=== PATIENT | female | born 1945 | race African-American/Black ===

== ENCOUNTER 2017-03-01 00:53 | Inpatient (IN) | payer OTHER ==
[~2017-03-01] VITALS: Ht 154.9 cm; Wt 56.7 kg
[~2017-03-01 00:53] MED LIST: COREG6.25 M1 PO; DESYREL100 MG PO; FOSAMAX70 MG PO; HYDROCODON-ACE1 EAC7 PO; LISINOPRIL5 MG PO; MAGNESIUM400 M1 PO; PRAVASTATIN SOD40 MG PO; PREDNISONE10 MG PO; PROVENTIL,2.5 MG/3 M IH; SOMA350 MG PO
[2017-03-01 01:43] LABS: EOSINOPHIL (%) 1.9 % (0-5); EOSINOPHIL COUNT 0.2 K/uL (0-0.3); HEMATOCRIT 31.5 % (36.0-46.0); IMMATURE GRANULOCYTE (%) 0.4 % (0.0-0.7); INSTRUMENT ABS NEUTROPHIL CT 6.3 K/uL; LYMPHOCYTE COUNT 1.1 K/uL (1.0-2.8); MCH 27.3 PG (29.0-34.0); MCHC 30.2 G/DL (30.0-36.0); MCV 90.5 FL (83-99); MEAN PLAT.VOLUME 9.8 uM^3 (9.5-12.4); MONOCYTE (%) 10.5 % (3-12); MONOCYTE COUNT 0.9 K/uL (0-0.8); NEUTROPHIL (%) 73.8 % (45-76); NEUTROPHIL COUNT 6.3 K/uL (1.8-6.4); PLATELET COUNT 470 K/uL (156-360); RBC DIS.WIDTH-CV 16.7 % (11.8-14.6); RED BLOOD COUNT 3.48 M/uL (3.80-5.20); WHITE BLOOD COUNT 8.6 K/uL (4.1-10.2)
[2017-03-01 01:49] LABS: INTER. NORMALIZED RATIO 1.1; PROTHROMBIN TIME 12.6 SEC (10.2-12.9)
[2017-03-01 01:51] LABS: CHLORIDE 98 mEq/L (99-109); POTASSIUM 4.1 mEq/L (3.7-5.4); PTT 34.8 SEC (25-37); SODIUM 140 mEq/L (136-147)
[2017-03-01 01:53] LABS: GLUCOSE 106 mg/dL (70-99)
[2017-03-01 01:54] LABS: ANION GAP 7 MEQ/L (2-14)
[2017-03-01 01:57] LABS: GFR ESTIMATE (CALCULATED) > 59 mL/min/; UREA NITROGEN (BUN) 5 mg/dL (9-23)
[2017-03-01 02:03] LABS: TROP-I INTERPRETATION NEGATIVE; TROPONIN-I 0.05 ng/mL (0.0-0.30)
[2017-03-01 04:24] LABS: BASE EXCESS 11.5 mEq/L (-3 to +3); BICARBONATE 38.5 mEq/L (22-26); CARBOXY HGB 2.6 % (0-5); COMMENTS - BLOOD GASES A+C+; DEVICE NC; METHEMOGLOBIN 0.9 % (0-1.5); O2 FLOW 6 L/MIN; PCO2 65 mm Hg (35-45); PO2 49 mm Hg (80-100); SITE LR; pH 7.38 (7.35-7.45)
[2017-03-01 04:25] LABS: TOTAL RESP RATE 27 resp/min
[2017-03-01 07:15] VITALS: BP 135/63
[2017-03-01 08:17] LABS: POINT-OF-CARE METER ID UU13113698
[2017-03-01 11:27] VITALS: BP 135/63
[2017-03-01 11:37] LABS: POINT-OF-CARE METER ID UU14314088
[2017-03-01 12:27] LABS: BICARBONATE 38.4 mEq/L (22-26); CARBOXY HGB 2.5 % (0-5); METHEMOGLOBIN 1.8 % (0-1.5); PCO2 68 mm Hg (35-45); pH 7.36 (7.35-7.45)
[2017-03-01 12:28] LABS: COMMENTS - BLOOD GASES A+C+; DEVICE HHFNC; FI02 60 %; O2 FLOW 30 L/MIN; PO2 69 mm Hg (80-100); SITE LR; TOTAL RESP RATE 22 resp/min
[2017-03-01] MEDS ORDERED: HYDROCODON-ACE1 EAC8 PO (13:32)
[2017-03-01] MEDS ORDERED: RANITIDINE HCL150 MG PO (13:35)
[2017-03-01] MEDS ORDERED: SERTRALINE HCL50 MG PO (13:36)
[2017-03-01] MEDS ORDERED: NIFEDIPINE ER30 MG PO (13:36)
[2017-03-01] MEDS ORDERED: DORZOLAMIDE HCL10 ML BOTH EYES (13:37)
[2017-03-01] MEDS ORDERED: ECHINACEA400 MG PO (13:37)
[2017-03-01] MEDS ORDERED: GLUCOSAMINE CH1 EAC6 PO (13:37)
[2017-03-01] MEDS ORDERED: TYLENOL REGULA325 MG PO (13:38)
[2017-03-01 15:18] VITALS: BP 105/54
[2017-03-01 16:59] LABS: POINT-OF-CARE METER ID UU14314088
[2017-03-01 18:53] VITALS: BP 101/57
[2017-03-01 21:14] LABS: POINT-OF-CARE METER ID UU14314088
[2017-03-01 21:38] VITALS: BP 102/59
[2017-03-01 23:29] VITALS: BP 119/61
[2017-03-02 04:42] VITALS: BP 114/58
[2017-03-02 05:23] LABS: HEMATOCRIT 27.5 % (36.0-46.0); MCH 26.9 PG (29.0-34.0); MCHC 30.2 G/DL (30.0-36.0); MEAN PLAT.VOLUME 10.1 uM^3 (9.5-12.4); PLATELET COUNT 442 K/uL (156-360); RBC DIS.WIDTH-CV 16.5 % (11.8-14.6); RBC DIS.WIDTH-SD 52.9 % (39-53); RED BLOOD COUNT 3.09 M/uL (3.80-5.20); WHITE BLOOD COUNT 19.5 K/uL (4.1-10.2)
[2017-03-02 05:57] LABS: ANION GAP 6 MEQ/L (2-14); CHLORIDE 96 MEQ/L (99-109); GFR ESTIMATE (CALCULATED) > 59 mL/min/; GLUCOSE 147 mg/dL (70-99); POTASSIUM 4.7 MEQ/L (3.7-5.4); SAMPLE HEMOLYSIS CHECK 0; SAMPLE ICTERIC CHECK 0; SAMPLE LIPEMIA CHECK 0; SODIUM 136 MEQ/L (136-147); UREA NITROGEN (BUN) 15 mg/dL (9-23)
[2017-03-02 08:03] LABS: POINT-OF-CARE METER ID UU13113781
[2017-03-02 11:48] VITALS: BP 116/52
[2017-03-02 12:02] LABS: POINT-OF-CARE METER ID UU13113781
[2017-03-02 15:29] VITALS: BP 148/68
[2017-03-02 16:59] LABS: POINT-OF-CARE METER ID UU13113781
[2017-03-02 20:30] VITALS: BP 115/75
[2017-03-02 21:23] LABS: POINT-OF-CARE METER ID UU13113781
[2017-03-03] VITALS (7 sets, daily range): BP systolic 104–125; BP diastolic 55–75
[2017-03-03 08:15] LABS: POINT-OF-CARE METER ID UU14174216; POINT-OF-CARE USER ID NUTSLF44
[2017-03-03 17:18] LABS: POINT-OF-CARE METER ID UU14174216; POINT-OF-CARE USER ID NUTSLF44
[2017-03-03 21:10] LABS: POINT-OF-CARE METER ID UU13113698
[2017-03-04 04:30] VITALS: BP 128/61
[2017-03-04 07:55] LABS: POINT-OF-CARE METER ID UU14174216
[2017-03-04 09:00] VITALS: BP 127/66
[2017-03-04 11:28] LABS: POINT-OF-CARE METER ID UU13113781
[2017-03-04 12:00] VITALS: BP 142/68
[2017-03-04 16:00] VITALS: BP 142/67
[2017-03-04 16:26] LABS: POINT-OF-CARE METER ID UU14174216
[2017-03-04 19:34] VITALS: BP 142/67
[2017-03-04 21:45] LABS: POINT-OF-CARE METER ID UU13113781
[2017-03-05 00:26] VITALS: BP 132/65
[2017-03-05 04:26] VITALS: BP 129/74
[2017-03-05 08:21] LABS: POINT-OF-CARE METER ID UU14174216; POINT-OF-CARE USER ID NUTSLF44
[2017-03-05 09:00] VITALS: BP 161/70
[2017-03-05 12:00] VITALS: BP 142/68
[2017-03-05 19:09] VITALS: BP 122/64
[2017-03-06] VITALS (7 sets, daily range): BP systolic 130–152; BP diastolic 63–79
[2017-03-06 12:14] LABS: EOSINOPHIL (%) 0 % (0-5); HEMATOCRIT 29.4 % (36.0-46.0); IMMATURE GRANULOCYTE (%) 0.5 % (0.0-0.7); IMMATURE GRANULOCYTE COUNT 0.1 K/uL; INSTRUMENT ABS NEUTROPHIL CT 13.4 K/uL; LYMPHOCYTE COUNT 0.6 K/uL (1.0-2.8); MCH 27.6 PG (29.0-34.0); MCHC 30.3 G/DL (30.0-36.0); MCV 91.3 FL (83-99); MEAN PLAT.VOLUME 10.3 uM^3 (9.5-12.4); MONOCYTE (%) 3.2 % (3-12); MONOCYTE COUNT 0.5 K/uL (0-0.8); NEUTROPHIL (%) 91.9 % (45-76); NEUTROPHIL COUNT 13.4 K/uL (1.8-6.4); PLATELET COUNT 437 K/uL (156-360); RBC DIS.WIDTH-CV 16.9 % (11.8-14.6); RBC DIS.WIDTH-SD 56.5 % (39-53); RED BLOOD COUNT 3.22 M/uL (3.80-5.20); WHITE BLOOD COUNT 14.6 K/uL (4.1-10.2)
[2017-03-06 12:57] LABS: ANION GAP 3 MEQ/L (2-14); CHLORIDE 98 MEQ/L (99-109); GFR ESTIMATE (CALCULATED) > 59 mL/min/; GLUCOSE 142 mg/dL (70-99); POTASSIUM 4.7 MEQ/L (3.7-5.4); SAMPLE HEMOLYSIS CHECK 0; SAMPLE ICTERIC CHECK 0; SAMPLE LIPEMIA CHECK 0; SODIUM 139 MEQ/L (136-147); UREA NITROGEN (BUN) 15 mg/dL (9-23)
[2017-03-07 03:44] VITALS: BP 168/78
[2017-03-07 08:00] VITALS: BP 143/72
[2017-03-07] MEDS ORDERED: BISAC-EVAC10 MG PR (15:23)
[2017-03-07] MEDS ORDERED: ADVAIR HFA120 INHAL1 IH (15:23)
[2017-03-07] MEDS ORDERED: DOCUSATE SODIU100 MG PO (15:23)
[2017-03-07] MEDS ORDERED: PRAVASTATIN SOD40 MG PO (15:24)
[2017-03-07] MEDS ORDERED: Salonpas 4% Patch TD (15:27)
[2017-03-07] MEDS ORDERED: HYDROCODON-ACE1 EAC7 PO (15:27)
[2017-03-07] MEDS ORDERED: Tums,OsCal PO (15:27)
[2017-03-07 15:44] VITALS: BP 158/72
== END 2017-03-07 20:41 | DRG 190 ==
LOC: EME → EDBD 00:53 → EDOF 05:48 → 4EAST 05:48 → ENRESERV 05:49 → 4EAST 07:05 → ENRESERV 03-06 19:45 → 4SOUTH 03-06 20:46 → ENRESERV 03-07 13:55 → 5EAST 03-07 15:55
PROVIDERS: Emergency Medicine; Hospitalist; Internal Medicine
DX: J44.1 Chronic obstructive pulmonary disease with (acute) exacerbation (principal); J96.21 Acute and chronic respiratory failure with hypoxia; Z99.81 Dependence on supplemental oxygen; C34.11 Malignant neoplasm of upper lobe, right bronchus or lung; M48.54XA Collapsed vertebra, not elsewhere classified, thoracic region, initial encounter for fracture; S80.02XA Contusion of left knee, initial encounter; W01.0XXA Fall on same level from slipping, tripping and stumbling without subsequent striking against object, initial encounter; Y92.122 Bedroom in nursing home as the place of occurrence of the external cause; D64.9 Anemia, unspecified; Z66 Do not resuscitate; K76.89 Other specified diseases of liver; K20.9 Esophagitis, unspecified; I25.10 Atherosclerotic heart disease of native coronary artery without angina pectoris; I25.2 Old myocardial infarction; K59.00 Constipation, unspecified; I10 Essential (primary) hypertension; E11.9 Type 2 diabetes mellitus without complications; E78.5 Hyperlipidemia, unspecified; D86.9 Sarcoidosis, unspecified; M79.7 Fibromyalgia; F03.90 Unspecified dementia, unspecified severity, without behavioral disturbance, psychotic disturbance, mood disturbance, and anxiety; G89.29 Other chronic pain; M54.5 Low back pain; Z86.73 Personal history of transient ischemic attack (TIA), and cerebral infarction without residual deficits; Z87.891 Personal history of nicotine dependence; Z96.652 Presence of left artificial knee joint; Z79.83 Long term (current) use of bisphosphonates
CPT/HCPCS: 36600; 70553; 71010; 71020; 71275; 72146; 73564; 80048; 82803; 82948; 84484; 85025; 85027; 85610; 85730; 93005; 94640; 94640 76; 94644; 94667; 94668; 94760; 94799; 99202; 99281; 99285; J0456; J1644; J2270; J2405; J2920; J2930; J3010; J7512